=== PATIENT | female | born 1950 | race Caucasian/White ===

== ENCOUNTER → 2018-02-21 | Outpatient (CLI) | payer OTHER | LOC: FIMAGING 09:29 | PROVIDERS: ATTEND Orthopaedic Surgery | DX: Z01.818 Encounter for other preprocedural examination (principal); M17.12 Unilateral primary osteoarthritis, left knee ==

== ENCOUNTER → 2018-03-04 | Outpatient (CLI) | payer OTHER | LOC: FIMAGING 08:43 | PROVIDERS: ATTEND Internal Medicine Rheumatology | DX: Z13.820 Encounter for screening for osteoporosis (principal); M85.89 Other specified disorders of bone density and structure, multiple sites; Z78.0 Asymptomatic menopausal state ==

== ENCOUNTER 2018-03-28 07:58 | Observation (INO) | payer OTHER ==
--- NOTE | 2018-03-17 16:25 | CPEKG ---
Test Reason : PREOP Blood Pressure : / mmHG Vent. Rate : 049 BPM Atrial Rate : 048 BPM P-R Int : 192 ms QRS Dur : 094 ms QT Int : 456 ms P-R-T Axes : 040 004 044 degrees QTc Int : 412 ms SINUS BRADYCARDIA Confirmed by Rom Silva ([id number]) on 03/17/2018 4:25:36 PM Referred By: Confirmed By:Rom Silva
--- NOTE | 2018-03-28 06:48 | PDHPUP ---
History & Physical Update H&P update statement: This history and physical update is based on an assessment of the patient which was completed after admission or registration (within 24 hours), but prior to the surgery/procedure. H&P update: no change in patient's condition since H&P completed
--- NOTE | 2018-03-28 06:49 | PDIAF ---
- Diagnosis Diagnosis: left knee djd Code Status: Full Code - Medication Management Discharge Medications: electronically signed and located in the Home Medication List. - Orders Services needed: Home Care, Physical Therapy Home Care Face to Face: I certify that this patient was under my care and that I had the required [id number] encounter meeting the encounter requirements on the discharge day. My findings support the fact that the patient is homebound as defined in Home Care Face to Face Continued: CMS Chapter 7 Medicare Benefits Manual 30.1.1 , The condition of the patient is such that there exists a normal inability to leave home and consequently, leaving home would require a considerable and taxing effort. Diet Recommendation: no restrictions on diet Diet Texture: Regular Texture Diet Additional Instructions: TOTAL JOINT ARTHROPLASTY DISCHARGE INSTRUCTIONS 1. Your surgeon follows the [facility] protocol for reducing your risk of DVT (blood clots) following surgery. Medication will be ordered to prevent blood clots. A sudden increase in calf pain and/or swelling could indicate a blood clot in your leg. If this occurs, please call your surgeon or his/her team assistant. An ultrasound of the leg may be necessary to diagnose a blood clot. If you have conditions that make you a higher risk for blood clots, your surgeon may use more aggressive ways to prevent them. Notify your surgeon if you think you are a high risk for blood clots. 2. Wear your white surgical stockings (LAM hose) for 2 weeks. This decreases your swelling and may help prevent blood clots. It is ok to remove LAM hose at night time to give your legs a break. 3. Swelling and bruising in the surgical leg is common. If you feel that it is excessive, please notify your surgeon. 4. Elevate your surgical leg with the ankle above the hip several times every day. Please keep the leg straight when you elevate by putting pillows under your foot. Do not put pillows under your knee. This will make being able to fully straighten more difficult. This is uncomfortable, but try to do it as much as possible. 5. For total knee replacements use compressive wrap on your knee for 3-5 days after surgery, then you can discontinue it. 6. Use a walker or crutches for 1-2 weeks. Progress your weight-bearing as tolerated. You may start to use a cane when you feel stable and safe. 7. You will receive physical therapy instructions in the hospital. Continue those exercises at home. There are additional exercises in the total joint booklet you were given before surgery. Outpatient physical therapy will begin 7- 10 days after surgery. Please schedule this in advance. 8. Use ice on your knee at least 3-5 times every day for 30 minutes. This helps reduce pain and swelling. Also use it at night before falling asleep. 9. Leave your surgical dressing in place for 2 weeks. Your dressing is water resistant, but not waterproof. Cover it with Saran Wrap or Nknng-f-Rqza before showering. You may shower as soon as you feel safe entering a shower. If you notice bleeding from your incision 2 or 3 days after surgery, please notify your surgeon. 10. Due to narcotics, decreased activity and altered diet, most patients experience constipation after surgery. Use higl-ura-avpatpf stool softeners while you are on narcotics. 11. You may drive a car when you are comfortable bearing weight, have good muscular control of your leg and are off narcotics. This usually occurs 2-4 weeks after surgery, depending on which leg was operated on. 12. If there are questions not addressed here, please refer the [facility] book given for more information. If you still have questions, please contact your surgeon s office. 13. If you have a life-threatening emergency, please call 911 and go to the emergency room immediately. For non-life threatening emergencies, please call your physicians office for advice before going to the emergency room. - Follow Up Care Current Providers and Referrals: Kacey Staton MD [Primary Care Provider] - Henrique Eric MD [Medical Doctor] -
[~2018-03-28 07:58] MED LIST: ROPIVACAINE 0.2% 80 MG, EPINEPHrine 0.2 MG, KETOROLAC TROMETHAMINE 30 MG, morphINE 10 M... IU ONE; TRANEXAMIC ACID 1,000 MG in NS 100 ML IV ONE
[2018-03-28] MEDS ORDERED: ceFAZolin 2 GM/DEXTROSE 100 ML IV ONE (08:13)
[2018-03-28] MEDS ORDERED: ACETAMINOPHEN 325 MG TAB PO ONE (08:13)
[2018-03-28] MEDS ORDERED: FAMOTIDINE 20 MG TAB PO ONE (08:13)
[2018-03-28] MEDS ORDERED: LR 1,000 ML IV ONE (08:14)
[2018-03-28] MEDS ORDERED: CALCIUM CHLORIDE 1 GM/10 ML INJ ONE (09:43)
[2018-03-28] MEDS ORDERED: ceFAZolin 1 GM/5 ML SYR ONE ×2 (09:44→12:50)
[2018-03-28] MEDS ORDERED: THROMBIN (BOVINE) 5,000 UNIT VIAL TP ONE (09:51)
[2018-03-28] MEDS ORDERED: MIDAZOLAM 2 MG/2 ML VIAL IVP ONE (12:03)
--- NOTE | 2018-03-28 12:05 | PDANEPAE ---
ANE History of Present Illness tka ANE Past Medical History - Cardiovascular History Hx Hypertension: Yes Hx Arrhythmias: No Hx Chest Pain: No Hx Coronary Artery / Peripheral Vascular Disease: No Hx CHF / Valvular Disease: No Hx Palpitations: No Cardiovascular History Comment: hx of edema, swelling - "not actual CHF" - Pulmonary History Hx COPD: No Hx Asthma/Reactive Airway Disease: No Hx Recent Upper Respiratory Infection: No Hx Oxygen in Use at Home: No Hx Sleep Apnea: No Sleep Apnea Screening Result - Last Documented: Positive Pulmonary History Comment: AYESHA triggers - Neurologic History Hx Cerebrovascular Accident: No Hx Seizures: No Hx Dementia: No - Endocrine History Hx Diabetes: No Obesity: moderate - Renal History Hx Renal Disorders: Yes Renal History Comment: 'watching kidneys b/c too much acid causes problems' - Liver History Hx Hepatic Disorders: No - Neurological & Psychiatric Hx Hx Neurological and Psychiatric Disorders: Yes Neurological / Psychiatric History Comment: depression - Cancer History Hx Cancer: No Cancer History Comment: "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 partial upper plate - Chronic Pain History Chronic Pain: Yes (left knee, hip) - Surgical History Prior Surgeries: breast reduction. hysterectomy. 'tummy tuck'. tonsillectomy ANE Review of Systems Review of Systems: - Exercise capacity Exercise capacity: limited by disability METS (RN): 3 METS ANE Patient History - Allergies Allergies/Adverse Reactions: shrimp Allergy (Verified 03/09/18 14:36) Rash Sulfa (Sulfonamide Antibiotics) Allergy (Verified 03/09/18 14:36) Rash - Home Medications Home medications: home medication list seen and reviewed Home Medications: Acetaminophen [Tylenol 325mg (*)] 325 mg PO DAILY PRN 03/09/18 [Last Taken 2 Weeks Ago ~03/14/18] Allopurinol [Allopurinol 300 MG (RX)] 300 mg PO DAILY 03/09/18 [Last Taken 03/27] Cholecalciferol Vit D3 [Vitamin D3 2000 units tab (OTC)] 4,000 units PO DAILY [Last Taken 03/27/18] Losartan/Hydrochlorothiazide [Losartan-Hctz 100-25 mg Tab] 1 each PO DAILY 03/09 [Last Taken 03/27/18] Metoprolol Succinate Xr [Toprol Xl 50 mg (*)] 50 mg PO HS 03/09/18 [Last Taken 03/27/18] Omeprazole 20 mg PO DAILY 03/09/18 [Last Taken 03/27/18] Spironolactone [Aldactone 25 MG (*)] 25 mg PO DAILY 03/09/18 [Last Taken ] traMADol [Ultram 50 mg (*)] 50 mg PO DAILY 03/09/18 [Last Taken 03/27/18] - NPO status NPO Status: no food or drink >8 hours NPO Since - Liquids (Date): 03/27/18 NPO Since - Liquids (Time): 22:00 NPO Since - Solids (Date): 03/27/18 NPO Since - Solids (Time): 18:00 - Anes Hx Anes Hx: no prior problems - Smoking Hx Smoking Status: Never smoked - Family Anes Hx Family Hx Anesthesia Complications: none ANE Labs/Vital Signs - Vital Signs Blood Pressure: 138/68 Heart Rate: 55 Respiratory Rate: 18 O2 Sat (%): 95 Height: 149.86 cm Weight: 97.522 kg ANE Physical Exam - Airway Mallampati Score: Class 2 Mouth exam: normal dental/mouth exam - Pulmonary Pulmonary: no respiratory distress - Cardiovascular Cardiovascular: regular rate and rhythym - ASA Status ASA Status: II ANE Anesthesia Plan Anesthesia Plan: spinal Regional Anesthesia: adductor canal FNB
[2018-03-28] MEDS ORDERED: PROPOFOL/EMULSION 500 MG/50 ML BOTTLE IV ONE ×2 (12:13→13:19)
[2018-03-28] MEDS ORDERED: BUPIVACAINE/DEXTROSE 7.5MG/ML 2 ML SPINAL AMP SP ONE (12:14)
[2018-03-28] MEDS ORDERED: LIDOCAINE 2% 5 ML SDV ONE (12:14)
[2018-03-28] MEDS ORDERED: ROPIVACAINE HCL 150 MG/30 ML INJ ONE (13:02)
[2018-03-28] MEDS ORDERED: EPINEPHrine 1 MG/ML INJ ONE (13:02)
[2018-03-28] MEDS ORDERED: ePHEDrine SULFATE 25 MG/5 ML SYR ONE (13:06)
[2018-03-28] MEDS ORDERED: ALBUTEROL 3 ML DEYVIAL IH PRN (13:29)
[2018-03-28] MEDS ORDERED: ONDANSETRON 4 MG/2 ML VIAL IVP PRN ×2 (13:29→15:50)
[2018-03-28] MEDS ORDERED: NALOXONE HCL 0.4 MG/ML INJ IVP PRN (13:29)
[2018-03-28] MEDS ORDERED: LR 500 ML IV PRN (13:29)
[2018-03-28] MEDS ORDERED: HYDROmorphONE/DILAUDID 2 MG/ML INJ IVP PRN (13:29)
--- NOTE | 2018-03-28 14:15 | POSTANESTH ---
Post Anesthetic Evaluation Cardiovascular Status: Normal, Stable Respiratory Status: Normal, Stable Level of Consciousness/Mental Status: Can Participate in Eval Pain Control: Adequate, Prn Tx Ordered Nausea/Vomiting Control: Adequate, Prn Tx Ordered Complications Possibly Related to Anesthesia: None Noted
[2018-03-28] MEDS ORDERED: LACTULOSE 20 GM/30 ML UDCUP PO PRN (15:50)
[2018-03-28] MEDS ORDERED: ONDANSETRON DISINTEGRATING 4 MG TAB PO PRN (15:50)
[2018-03-28] MEDS ORDERED: METOCLOPRAMIDE 10 MG/2 ML VIAL IVP PRN (15:50)
[2018-03-28] MEDS ORDERED: POLYETHYLENE GLYCOL 3350 17 GM PKT PO PRN (15:50)
[2018-03-28] MEDS ORDERED: PROMETHAZINE HCL 25 MG/ML INJ IVP PRN (15:50)
[2018-03-28] MEDS ORDERED: TEMAZEPAM 15 MG CAP PO PRN (15:50)
[2018-03-28] MEDS ORDERED: MAGNESIUM HYDROXIDE 30 ML UDCUP PO PRN (15:50)
[2018-03-28] MEDS ORDERED: diphenhydrAMINE 25 MG CAP PO PRN (15:50)
[2018-03-28] MEDS ORDERED: PROMETHAZINE HCL 25 MG SUPPR PR PRN (15:50)
[2018-03-28] MEDS ORDERED: DIPHENOXYLATE/ATROPINE LOMOTIL 1 TAB PO PRN (15:50)
[2018-03-28] MEDS ORDERED: CYCLOBENZAPRINE 10 MG TAB PO PRN (15:50)
[2018-03-28] MEDS ORDERED: BISACODYL 10 MG SUPP PR PRN (15:50)
--- NOTE | 2018-03-28 15:53 | POSTOPPROG ---
Post Op Note Date of Operation: 03/28/18 Surgeon: Henrique Eric Bottle Caser: dimitri Anesthesiologist: cassandra Anesthesia: Spinal Pre-op Diagnosis: left knee djd Post-op Diagnosis: same Indication: same Procedure: left tka Inf/Abcess present in the surg proc area at time of surgery?: No Depth: Deep Incisional (Fascial) EBL: 50-100
[2018-03-28] MEDS ORDERED: LR 1,000 ML IV SCH (16:00)
[2018-03-28] MEDS: ACETAMINOPHEN 325 MG TAB PO SCH (17:26)
[2018-03-28] MEDS: oxyCODONE IR 5 MG TAB PO PRN ×2 (17:26→21:04)
[2018-03-28] MEDS: SENNOSIDES/DOCUSATE SODIUM TAB PO SCH (20:51)
[2018-03-28] MEDS: FAMOTIDINE 20 MG TAB PO SCH (20:52)
[2018-03-28] MEDS ORDERED: METOPROLOL SUCCINATE XR 50 MG TAB PO SCH (21:00)
[2018-03-28] MEDS: ASPIRIN 325 MG TAB PO SCH (21:16)
[2018-03-28] MEDS: ceFAZolin 2 GM/DEXTROSE 100 ML IV SCH (22:34)
[2018-03-28] MEDS: TRANEXAMIC ACID 650 MG TAB PO SCH (22:34)
[2018-03-29] MEDS: ACETAMINOPHEN 325 MG TAB PO SCH ×3 (00:31→11:55)
[2018-03-29] MEDS: TRANEXAMIC ACID 650 MG TAB PO SCH (06:05)
[2018-03-29] MEDS: oxyCODONE IR 5 MG TAB PO PRN ×2 (06:06→08:11)
[2018-03-29] MEDS: ceFAZolin 2 GM/DEXTROSE 100 ML IV SCH (06:06)
--- NOTE | 2018-03-29 07:29 | SOAPPROG ---
SOAP Progress Note Assessment/Plan: Assessment: s/p tka Plan:d/c when cleared by pt/ot dvt precautions reviewed f/u at two weeks seek attn for increasing pain, cp, sob, leg pain, or other focal complaint 03/29/18 07:27 Subjective: no cp or sob mild pain no current nausea Objective: Vital Signs Temp Pulse Resp BP Pulse Ox 36.9 C 54 L 19 113/56 L 96 03/29/18 04:00 03/29/18 04:00 03/29/18 04:00 03/29/18 04:00 03/29/18 04:00 Laboratory Results 03/29/18 05:20 03/28/18 03/29/18 03/30/18 05:59 05:59 05:59 Intake Total 1960 Output Total 360 Balance 1600 dressing intact intact pfd,ehl toes warm and pink neg homans kvng xrays stable anatomic alignment, no fx or lucency ICD10 Worksheet Patient Problems: Problems Problem Status Onset Arthritis of knee Acute - ICD10 Problem Qualifiers (1) Arthritis of knee
--- NOTE | 2018-03-29 07:29 | PDIAF ---
- Diagnosis Diagnosis: left knee djd Code Status: Full Code - Medication Management Discharge Medications: electronically signed and located in the Home Medication List. - Orders Services needed: Home Care, Physical Therapy Home Care Face to Face: I certify that this patient was under my care and that I had the required yirr-sg-qjii encounter meeting the encounter requirements on the discharge day. My findings support the fact that the patient is homebound as defined in Home Care Face to Face Continued: CMS Chapter 7 Medicare Benefits Manual 30.1.1 , The condition of the patient is such that there exists a normal inability to leave home and consequently, leaving home would require a considerable and taxing effort. Diet Recommendation: no restrictions on diet Diet Texture: Regular Texture Diet Additional Instructions: TOTAL JOINT ARTHROPLASTY DISCHARGE INSTRUCTIONS 1. Your surgeon follows the [facility] protocol for reducing your risk of DVT (blood clots) following surgery. Medication will be ordered to prevent blood clots. A sudden increase in calf pain and/or swelling could indicate a blood clot in your leg. If this occurs, please call your surgeon or his/her family practice physician assistant. An ultrasound of the leg may be necessary to diagnose a blood clot. If you have conditions that make you a higher risk for blood clots, your surgeon may use more aggressive ways to prevent them. Notify your surgeon if you think you are a high risk for blood clots. 2. Wear your white surgical stockings (LAM hose) for 2 weeks. This decreases your swelling and may help prevent blood clots. It is ok to remove LAM hose at night time to give your legs a break. 3. Swelling and bruising in the surgical leg is common. If you feel that it is excessive, please notify your surgeon. 4. Elevate your surgical leg with the ankle above the hip several times every day. Please keep the leg straight when you elevate by putting pillows under your foot. Do not put pillows under your knee. This will make being able to fully straighten more difficult. This is uncomfortable, but try to do it as much as possible. 5. For total knee replacements use compressive wrap on your knee for 3-5 days after surgery, then you can discontinue it. 6. Use a walker or crutches for 1-2 weeks. Progress your weight-bearing as tolerated. You may start to use a cane when you feel stable and safe. 7. You will receive physical therapy instructions in the hospital. Continue those exercises at home. There are additional exercises in the total joint booklet you were given before surgery. Outpatient physical therapy will begin 7- 10 days after surgery. Please schedule this in advance. 8. Use ice on your knee at least 3-5 times every day for 30 minutes. This helps reduce pain and swelling. Also use it at night before falling asleep. 9. Leave your surgical dressing in place for 2 weeks. Your dressing is water resistant, but not waterproof. Cover it with Saran Wrap or Xhjri-e-Xroy before showering. You may shower as soon as you feel safe entering a shower. If you notice bleeding from your incision 2 or 3 days after surgery, please notify your surgeon. 10. Due to narcotics, decreased activity and altered diet, most patients experience constipation after surgery. Use mwnw-dvk-qtwoljn stool softeners while you are on narcotics. 11. You may drive a car when you are comfortable bearing weight, have good muscular control of your leg and are off narcotics. This usually occurs 2-4 weeks after surgery, depending on which leg was operated on. 12. If there are questions not addressed here, please refer the [facility] book given for more information. If you still have questions, please contact your surgeon s office. 13. If you have a life-threatening emergency, please call 911 and go to the emergency room immediately. For non-life threatening emergencies, please call your physicians office for advice before going to the emergency room. - Follow Up Care Current Providers and Referrals: Kacey Staton MD [Primary Care Provider] - Henrique Eric MD [Medical Doctor] -
[2018-03-29] MEDS: FAMOTIDINE 20 MG TAB PO SCH (08:07)
[2018-03-29] MEDS: ASPIRIN 325 MG TAB PO SCH (08:09)
[2018-03-29] MEDS: SENNOSIDES/DOCUSATE SODIUM TAB PO SCH (08:09)
[2018-03-29 08:14] VITALS: BP 127/60
[2018-03-29] MEDS ORDERED: ALLOPURINOL 300 MG TAB PO SCH (09:00)
[2018-03-29] MEDS ORDERED: traMADol 50 MG TAB PO SCH (09:00)
[2018-03-29] MEDS ORDERED: PANTOPRAZOLE SODIUM 40 MG TAB PO SCH (09:00)
[2018-03-29] MEDS ORDERED: LOSARTAN/HCTZ 50/12.5 1 TAB PO SCH (09:00)
[2018-03-29] MEDS ORDERED: SPIRONOLACTONE 25 MG TAB PO SCH (09:00)
--- NOTE | 2018-03-29 11:17 | ASMTCASEMG ---
Living Arrangements What is your living Answers: Alone arrangement? Who do you live with? Type Of Residence What kind of residence do Answers: House you live in? Discharge Plan Comments Coordination Status Comments Notes: Patient is a 67yo single female with left knee djd who comes for joint replacement surgery. OT/PT have been ordered for the patient. D/C plan will most likely be home health PT. CM will follow. Date Signed: 03/29/2018 11:17 AM Electronically Signed By:Danielle Toscano LCSW
--- NOTE | 2018-03-29 11:35 | ASDISCHSUM ---
Discharge Information Plan Status:Home with No Needs Medically Cleared to Leave:03/28/2018 Discharge Date:03/28/2018 CM D/C Disposition:Home, Routine, Self-Care ADT D/C Disposition:Home Health Service Projected Discharge Date:03/29/2018 12:00 AM Transportation at D/C:Friend Discharge Delay Reason: Follow-Up Date:03/29/2018 12:00 AM Discharge Slot:2 - 12:01 pm - 18:00 pm Final Diagnosis:Knee Arthroplasty Placement Information Patient Contact Information Contact Name:MANUEL Relationship:Friend Address:[address] [place] [address] City:[place] Alternate Phone: [facility] Code:[place] Email: Financial Information Financial Class:Medicare Primary Plan Desc:MEDICARE INPATIENT Primary Plan Number:[id number] Secondary Plan Desc: Secondary Plan Number: Assessment Information [facility] Initial CM Assessment Living Arrangements What is your living Answers: Alone arrangement? Who do you live with? Type Of Residence What kind of residence do Answers: House you live in? Discharge Plan Comments Coordination Status Comments Notes: Patient is a 67yo single female with left knee djd who comes for joint replacement surgery. OT/PT have been ordered for the patient. D/C plan will most likely be home health PT. CM will follow. Date Signed: 03/29/2018 11:17 AM Electronically Signed By:Danielle Toscano LCSW Case Management Discharge Plan Note Case Management Discharge Discharge Order Complete? Answers: Yes Patient to Obtain Answers: Independently Medications Transportation Arranged Answers: Family/Friends Family Notified Answers: Yes Notes: Susan zuñiga Discharge Comments Notes: Patient is ready for d/c today. Home Health PT was recommended, however, patient has to make a trip leaving tomorrow and won't return until April 04, 2018. Patient will pursue outpatient physical therapy when she returns home with the support of Dr. Eric's office. No further needs. Date Signed: 03/29/2018 11:31 AM Electronically Signed By:Danielle Toscano LCSW Intervention Information Intervention Type:*Incorrect Registration Date of Service:03/28/2018 05:43 PM Patient Type:Inpatient Staff Member:Araceli Verdin Hours: Discipline: Severity: Comment:
--- NOTE | 2018-03-29 11:36 | ASMTLACE ---
MELYE Length of stay for Answers: 1 day current admission Acuity / Level of Answers: Yes Care: Did the patient have an inpatient admission? Comorbidities - select Answers: Opioid dependence all that apply / Chronic pain Other Notes: HTN; GERD # of Emergency department Answers: 0 visits in the last 6 months Social determinants Answers: Mental health diagnosis (anxiety, depression, pers onality disorders, etc.) Score: 12 Date Signed: 03/29/2018 11:35 AM Electronically Signed By:Danielle Toscano LCSW
--- NOTE | 2018-04-03 13:21 | GOP ---
DATE OF OPERATION: 03/28/2018 SURGEON: Henrique Eric MD AIR DEFENCE OFFICER: Marco Antonio Adkins, surgical assistant who was a medical necessity for the entirety of the case. PREOPERATIVE DIAGNOSIS: Left knee degenerative joint disease. POSTOPERATIVE DIAGNOSIS: Left knee degenerative joint disease. PROCEDURE PERFORMED: Left total knee arthroplasty. FINDINGS: SPECIMENS: To Pathology, none. INDICATIONS: The patient is a 67-year-old woman who has end-stage arthritis to her left knee. Clini linda and radiographic features are consistent with this. She has failed all attempts at conservative management. I have, therefore, recommended operative intervention. I have outlined the surgical pro cedure, risks, benefits, and alternatives. She wishes to proceed. Written consent was signed and pl aced in patient's chart. DESCRIPTION OF PROCEDURE: The patient was identified in the preanesthesia area. The left knee clear ly demarcated as the operative site with indelible marker. She was given 2 g of Ancef intravenously in route to the operative suite. In the OR, spinal anesthetic was placed, followed by sedation. She was turned to the supine position. Attention was turned to the left knee, which was sterilely prepp ed and draped in usual fashion. A tourniquet was applied to the upper thigh. Appropriate time-out p rocedure was carried out. The knee was exsanguinated and tourniquet inflated with 275 mmHg. Standard anterior midline incision was made. Thick subcutaneous flaps were elevated, followed by med ial parapatellar arthrotomy. Subperiosteal elevation was carried out to the mid coronal plane. Retr actors were then placed. There was tricompartmental arthritic change. Decision was made to proceed with total knee replacement. Two pins were then placed medial, lateral across the distal femur. The femoral reference array was a ffixed, followed by the femoral check point, the tibial reference array was affixed over a percutaneo us incision over the mid tibia and a tibial check point was placed. All bony landmarks were then ent ered in the computer. The knee was balanced through the flexion-extension arc with the MAKOplasty so ftware. Resections were made for a size 4 tibia, size 4 femur, and a 4 x 11 mm polyethylene spacer trial was placed. This allowed full extension and flexion of 130 degrees without instability. There was no va pretty or valgus laxity through the flexion-extension arc. The trial components were withdrawn. The bone ends were thoroughly cleansed. The tibia and femoral components were press-fit, followed by placing the polyethylene spacer 4 x 11 mm thick. The knee was stable and appropriately balanced as previous. The patella was then everted, cut in a freehand cutt ing technique. Drill holes made for a size 32 patella, and a 32 mm patella was then press-fit. The kneecap tracked centrally through the flexion-extension arc. The wound was copiously irrigated. The capsule instilled with a joint cocktail of ropivacaine, morph ine, Toradol, and epinephrine, and the medial parapatellar arthrotomy closed using #1 Ethibond suture . The knee instilled with platelet-rich plasma. The subcutaneous tissue using 2-0 Monocryl, and the skin, a ZipLine closure was placed. Sterile dressing was applied. The patient was awakened, extuba marc, and taken to recovery room in good, stable condition. TOTAL TOURNIQUET TIME: 50 minutes. COMPLICATIONS: None. IMPLANTS: The Brad Triathlon tibia size 4, size 4 femur, 4 x 11 mm X3 polyethylene spacer, and pa tella 32 mm. DISPOSITION: To the recovery room, then the floor. Weight bearing as tolerating. Range of motion a s tolerated. /[id number]/MODL
--- NOTE | 2018-04-03 13:30 | GDS ---
ADMISSION DIAGNOSIS: Left knee degenerative joint disease. DISCHARGE DIAGNOSIS: Left knee degenerative joint disease. PROCEDURE: Left total knee arthroplasty. OPERATIVE INDICATIONS: The patient is a 67-year-old woman who presents for elective total knee repla cement. She has failed all attempts at conservative management. I, therefore, recommended total kne e replacement. HOSPITAL COURSE: The patient was admitted overnight after uncomplicated total knee arthroplasty. Sh e tolerated the procedure well. At time of discharge, she is tolerating an oral diet, pain is well c ontrolled on oral medicines. She is voiding without difficulty. X-rays are stable with anatomic ali gnment. DISCHARGE ACTIVITY: She is weightbearing, range of motion as tolerated. May keep the dressing on an d shower daily. Followup for increasing pain, swelling, leg pain, shortness of breath. DISCHARGE MEDICATIONS: Oxycodone 5 mg 1 to 2 every 6 hours p.r.n. pain, aspirin 325 mg p.o. daily. /[id number]/MODL
== END 2018-03-29 13:26 | disposition home health service (06) ==
LOC: F3N 07:58 → INTOOBSV 07:58 → F3N 16:47
PROVIDERS: ADMIT Orthopaedic Surgery; ATTEND Orthopaedic Surgery
PROC: 0SRD06Z Replacement of Left Knee Joint with Oxidized Zirconium on Polyethylene Synthetic Substitute, Open Approach (ICD-10-PCS; principal; 2018-03-28 12:00)
DX: M17.12 Unilateral primary osteoarthritis, left knee (principal)
CPT/HCPCS: 27447; 73560; 88311; 93005; 97110; 97161; 97165; 97535; C1776; G8978; G8979; G8980; G8987; G8988; J0171; J0690; J1885; J2250; J2270; J2704; J2795

== ENCOUNTER → 2018-05-09 | Outpatient (CLI) | payer OTHER | LOC: BMCIMAGING 07:53 | PROVIDERS: ATTEND Physician Assistant | DX: Z47.1 Aftercare following joint replacement surgery (principal); Z96.652 Presence of left artificial knee joint ==